=== PATIENT | female | born 1995 | race Two or more races ===

== ENCOUNTER → 2021-02-27 | Outpatient (CLI) | payer OTHER | END | disposition home or self-care (01) | LOC: PRENATAL 14:44 | PROVIDERS: ATTEND Obstetrics & Gynecology Maternal & Fetal Medicine | DX: O35.0XX1 Maternal care for (suspected) central nervous system malformation in fetus, fetus 1 (principal); O35.3XX1 Maternal care for (suspected) damage to fetus from viral disease in mother, fetus 1; O98.512 Other viral diseases complicating pregnancy, second trimester; Z36.89 Encounter for other specified antenatal screening; Z3A.22 22 weeks gestation of pregnancy ==

== ENCOUNTER 2021-06-11 07:00 | Inpatient (IN) | payer OTHER ==
[~2021-06-11] VITALS: Ht 154.9 cm; Wt 3.2 kg
[2021-06-11] MEDS ORDERED: PRENATABS FA T1 EACH PO (09:20)
[2021-06-21] MEDS ORDERED: IBUPROFEN600 MG PO (07:55)
[2021-06-21] MEDS ORDERED: SIMETHICONE125 M1 PO (07:56)
== END 2021-06-21 14:21 | disposition home or self-care (01) | DRG 788 ==
LOC: OB/GYN 06-18 07:00 → O/R 06-18 08:05 → OB/GYN 06-18 15:15
PROVIDERS: ADMIT Obstetrics & Gynecology; ATTEND Obstetrics & Gynecology
PROC: 4A1HXFZ Monitoring of Products of Conception, Cardiac Rhythm, External Approach (ICD-10-PCS; 2021-06-18)
PROC: 10D00Z1 Extraction of Products of Conception, Low, Open Approach (ICD-10-PCS; principal; 2021-06-18 07:00)
DX: O34.211 Maternal care for low transverse scar from previous cesarean delivery (principal); Z37.0 Single live birth; Z3A.39 39 weeks gestation of pregnancy

== ENCOUNTER 2023-01-05 08:12 | Outpatient (CLI) | payer OTHER ==
[~2023-01-05 08:12] MED LIST: IBUPROFEN600 MG PO; PRENATABS FA T1 EACH PO; SIMETHICONE125 M1 PO
== END 2023-01-05 09:30 | disposition home or self-care (01) ==
LOC: PRENATAL 08:12
PROVIDERS: ATTEND Obstetrics & Gynecology Maternal & Fetal Medicine
DX: O35.9XX0 Maternal care for (suspected) fetal abnormality and damage, unspecified, not applicable or unspecified (principal); O35.3XX0 Maternal care for (suspected) damage to fetus from viral disease in mother, not applicable or unspecified; Z3A.22 22 weeks gestation of pregnancy

== ENCOUNTER 2023-03-18 08:37 | Outpatient (CLI) | payer OTHER | END 2023-03-18 10:00 | disposition home or self-care (01) | LOC: PRENATAL 08:37 | PROVIDERS: ATTEND Obstetrics & Gynecology Maternal & Fetal Medicine | DX: O26.849 Uterine size-date discrepancy, unspecified trimester (principal); O35.9XX0 Maternal care for (suspected) fetal abnormality and damage, unspecified, not applicable or unspecified; O36.8199 Decreased fetal movements, unspecified trimester, other fetus; Z3A.32 32 weeks gestation of pregnancy ==